=== PATIENT | male | born 1990 | race Caucasian/White ===

== ENCOUNTER 2017-11-23 01:17 | Emergency (ER) | payer OTHER ==
[2017-11-23 03:22] VITALS: BP 132/70
== END 2017-11-23 03:23 | disposition other institution (70) ==
LOC: ED 01:17
DX: F10.10 Alcohol abuse, uncomplicated (principal); Z02.89 Encounter for other administrative examinations; V49.9XXA Car occupant (driver) (passenger) injured in unspecified traffic accident, initial encounter; Y93.73 Activity, racquet and hand sports; Y92.89 Other specified places as the place of occurrence of the external cause; Y99.8 Other external cause status